=== PATIENT | male | born 1990 | race Caucasian/White ===

== ENCOUNTER 2018-02-27 17:30 | Emergency (ER) | payer MEDICAID, OTHER ==
[~2018-02-27] VITALS: Ht 180.3 cm; Wt 81.8 kg
[~2018-02-27 17:30] MED LIST: LIDO700A32 TOP
[2018-02-27 18:09] LABS: BASOPHILS % (AUTO) 0 % (0-1); EOSINOPHILS # (AUTO) 0.2 X10'3 (0-0.9); HEMATOCRIT 50.7 % (42.0-52.0); LYMPHOCYTES # (AUTO) 0.3 X10'3 (1.1-4.8); MEAN CORPUSCULAR HEMOGLOBIN 30.5 PG (27.0-31.0); MEAN CORPUSCULAR HGB CONC 33.5 % (33.0-36.5); MEAN CORPUSCULAR VOLUME 90.9 FL (78-98); MEAN PLATELET VOLUME 8.1 FL (7.4-10.4); MONOCYTES # (AUTO) 0.3 X10'3 (0-0.9); MONOCYTES % (AUTO) 1.7 % (2-12); NEUTROPHILS # (AUTO) 14.4 X10'3 (1.8-7.7); NEUTROPHILS % (AUTO) 95.3 % (42-75); PLATELET COUNT 313 X10'3 (140-440); RED BLOOD COUNT 5.58 X10'6 (4.70-6.10); RED CELL DISTRIBUTION WIDTH 13.7 % (11.5-14.5); WHITE BLOOD COUNT 15.1 X10'3 (4.5-11.0)
[2018-02-27 18:19] LABS: ALANINE AMINOTRANSFERASE 22 U/L (12-78); ALBUMIN 4.3 G/DL (3.4-5.0); ALBUMIN/GLOBULIN RATIO 1.2 (1.1-1.5); ALKALINE PHOSPHATASE 61 IU/L (46-116); ANION GAP 10 (8-16); ASPARTATE AMINO TRANSFERASE 11 U/L (10-37); BILIRUBIN,TOTAL 0.6 MG/DL (0.1-1.0); BLOOD UREA NITROGEN 19 MG/DL (7-18); BUN/CREATININE RATIO 17.9 (5.4-32.0); CALCIUM 8.8 MG/DL (8.5-10.1); CHLORIDE 102 MMOL/L (99-107); CREATININE 1.06 MG/DL (0.60-1.10); GLUCOSE 101 MG/DL (70-104); LIPASE 90 U/L (73-393); POTASSIUM 4.3 MMOL/L (3.5-5.1); SODIUM 140 MMOL/L (135-145); TOTAL CARBON DIOXIDE 28.2 MMOL/L (24-32); TOTAL PROTEIN 7.8 G/DL (6.4-8.2); eGFR 83 ML/MIN
[2018-02-27 18:28] LABS: PROTHROMBIN TIME 10.3 SECONDS (9.0-12.0)
[2018-02-27 18:55] LABS: TOTAL CELLS COUNTED 100
[2018-02-27] MEDS ORDERED: normal saline 1000ML IV soln IVB ONE (18:55)
[2018-02-27] MEDS ORDERED: ondansetron/PF 4mg/2ml inj IV ONE (18:55)
[2018-02-27 18:56] LABS: PLATELET ESTIMATE NORMAL
[2018-02-27 18:57] LABS: TOXIC VACUOLATION 1+
[2018-02-27] MEDS ORDERED: ONDA8TAB6 PO (18:58)
[2018-02-27 20:25] VITALS: BP 128/64
== END 2018-02-27 20:26 | disposition home or self-care (01) ==
LOC: ER 17:30
DX: R11.2 Nausea with vomiting, unspecified (principal); R19.7 Diarrhea, unspecified; R10.10 Upper abdominal pain, unspecified; R10.84 Generalized abdominal pain; R10.31 Right lower quadrant pain; F17.200 Nicotine dependence, unspecified, uncomplicated; Z88.0 Allergy status to penicillin; Z88.2 Allergy status to sulfonamides; Z88.4 Allergy status to anesthetic agent; Z90.89 Acquired absence of other organs; Z60.2 Problems related to living alone
CPT/HCPCS: 36415; 80053; 83690; 85025; 85610; 96361; 96374; 99283; J2405; J7030

== ENCOUNTER 2018-03-17 11:09 | Emergency (ER) | payer MEDICAID ==
[~2018-03-17] VITALS: Ht 180.3 cm; Wt 81.8 kg
[~2018-03-17 11:09] MED LIST changes: +ONDA8TAB6 PO
[2018-03-17 11:12] VITALS: BP 123/65
[2018-03-17] MEDS ORDERED: HYDR-3686 PO (15:05)
== END 2018-03-17 13:03 | disposition left against medical advice (07) ==
LOC: ER 11:09
DX: R21 Rash and other nonspecific skin eruption (principal); Z53.21 Procedure and treatment not carried out due to patient leaving prior to being seen by health care provider

== ENCOUNTER 2018-03-17 13:35 | Emergency (ER) | payer MEDICAID ==
[~2018-03-17] VITALS: Ht 180.3 cm; Wt 81.8 kg
[2018-03-17 14:17] VITALS: BP 136/77
[2018-03-17] MEDS ORDERED: HYDR-3686 PO (15:05)
== END 2018-03-17 15:20 | disposition home or self-care (01) ==
LOC: ER 13:35
DX: L27.1 Localized skin eruption due to drugs and medicaments taken internally (principal); T37.0X5A Adverse effect of sulfonamides, initial encounter; S00.521A Blister (nonthermal) of lip, initial encounter; L02.811 Cutaneous abscess of head [any part, except face]; L98.8 Other specified disorders of the skin and subcutaneous tissue; Z88.0 Allergy status to penicillin; Z88.2 Allergy status to sulfonamides; Z79.899 Other long term (current) drug therapy; Z90.89 Acquired absence of other organs; X58.XXXA Exposure to other specified factors, initial encounter; Y93.89 Activity, other specified; Y92.89 Other specified places as the place of occurrence of the external cause; Y99.8 Other external cause status
CPT/HCPCS: 10060; 99284

== ENCOUNTER 2018-03-18 10:11 | Emergency (ER) | payer MEDICAID ==
[~2018-03-18] VITALS: Ht 180.3 cm; Wt 79.3 kg
[~2018-03-18 10:11] MED LIST changes: +HYDR-3686 PO
[2018-03-18 10:34] VITALS: BP 133/92
== END 2018-03-18 12:19 | disposition home or self-care (01) ==
LOC: ER 10:11
DX: L27.1 Localized skin eruption due to drugs and medicaments taken internally (principal); T37.0X5D Adverse effect of sulfonamides, subsequent encounter; Z88.0 Allergy status to penicillin; Z88.2 Allergy status to sulfonamides; Z90.89 Acquired absence of other organs; Z79.899 Other long term (current) drug therapy; Z60.2 Problems related to living alone; X58.XXXD Exposure to other specified factors, subsequent encounter
CPT/HCPCS: 99281

== ENCOUNTER 2022-09-09 07:58 | Emergency (ER) | payer MEDICAID ==
[~2022-09-09] VITALS: Ht 180.3 cm; Wt 86.4 kg
[~2022-09-09 07:58] MED LIST changes: -HYDR-3686 PO
[2022-09-09 08:57] LABS: BASOPHILS % (AUTO) 0.3 % (0-1); EOSINOPHILS # (AUTO) 0.3 X10'3 (0-0.9); EOSINOPHILS % (AUTO) 3.3 % (0-6); HEMATOCRIT 42.8 % (42.0-52.0); HEMOGLOBIN 14.5 g/dl (14.0-17.9); LYMPHOCYTES # (AUTO) 1.5 X10'3 (1.1-4.8); LYMPHOCYTES % (AUTO) 15.1 % (21-51); MEAN CORPUSCULAR HEMOGLOBIN 30.4 PG (27.0-31.0); MEAN CORPUSCULAR HGB CONC 33.8 g/dL (33.0-36.5); MEAN CORPUSCULAR VOLUME 89.9 FL (78-98); MEAN PLATELET VOLUME 7.3 FL (7.4-10.4); MONOCYTES # (AUTO) 0.8 X10'3 (0-0.9); MONOCYTES % (AUTO) 8.1 % (2-12); NEUTROPHILS # (AUTO) 7.2 X10'3 (1.8-7.7); NEUTROPHILS % (AUTO) 73.2 % (42-75); PLATELET COUNT 268 X10'3 (140-440); RED BLOOD COUNT 4.76 X10'6 (4.70-6.10); RED CELL DISTRIBUTION WIDTH 13.7 % (11.5-14.5); WHITE BLOOD COUNT 9.8 X10'3 (4.5-11.0)
[2022-09-09 09:13] LABS: ALANINE AMINOTRANSFERASE 23 U/L (12-78); ALBUMIN 3.6 G/DL (3.4-5.0); ALKALINE PHOSPHATASE 78 IU/L (46-116); ANION GAP 7 (8-16); ASPARTATE AMINO TRANSFERASE 11 U/L (10-37); BILIRUBIN,TOTAL 0.2 MG/DL (0.1-1.0); BLOOD UREA NITROGEN 26 MG/DL (7-18); BUN/CREATININE RATIO 26.3 (10.0-20.0); CALCIUM 8.7 MG/DL (8.5-10.1); CHLORIDE 103 MMOL/L (99-107); CREATININE 0.99 MG/DL (0.60-1.10); GLUCOSE 121 MG/DL (70-104); SODIUM 139 MMOL/L (135-145); TOTAL CARBON DIOXIDE 29.4 MMOL/L (24-32); TOTAL PROTEIN 7.2 G/DL (6.4-8.2); eGFR 87 ML/MIN
[2022-09-09 09:17] LABS: POTASSIUM 3.5 MMOL/L (3.5-5.1)
[2022-09-09 09:20] VITALS: BP 141/83
[2022-09-09] MEDS ORDERED: DOXY100C43 PO (10:12)
== END 2022-09-09 10:23 | disposition home or self-care (01) ==
LOC: ER 07:59
DX: L03.113 Cellulitis of right upper limb (principal); Z72.89 Other problems related to lifestyle; Z60.2 Problems related to living alone; Z90.89 Acquired absence of other organs; Z88.0 Allergy status to penicillin; Z88.2 Allergy status to sulfonamides; Z79.899 Other long term (current) drug therapy
CPT/HCPCS: 36415; 80053; 84145; 85025; 99283

== ENCOUNTER 2022-10-28 10:46 | Emergency (ER) | payer MEDICAID ==
[~2022-10-28] VITALS: Ht 180.3 cm; Wt 73.2 kg
[2022-10-28 10:48] VITALS: BP 151/90; PULSE 80; RESP 18; TEMP 98.5; O2SAT 94
[2022-10-28] MEDS ORDERED: CEPH-585 PO (11:17)
[2022-10-28] MEDS ORDERED: bacitracin 15gm ointment TP ONE (11:20)
== END 2022-10-28 11:29 | disposition home or self-care (01) ==
LOC: ER 10:46
DX: T23.101D Burn of first degree of right hand, unspecified site, subsequent encounter (principal); Z88.0 Allergy status to penicillin; Z88.2 Allergy status to sulfonamides; Z79.899 Other long term (current) drug therapy; X58.XXXD Exposure to other specified factors, subsequent encounter
CPT/HCPCS: 11760; 16000; 99283; A6449

== ENCOUNTER 2023-09-12 17:21 | Outpatient (CLI) | payer MEDICAID ==
[~2023-09-12 17:21] MED LIST changes: +CEPH-585 PO
== END 2023-09-12 23:59 | disposition home or self-care (01) ==
LOC: RAD 17:21
PROVIDERS: ATTEND Neurological Surgery
DX: S22.008A Other fracture of unspecified thoracic vertebra, initial encounter for closed fracture (principal); S23.3XXA Sprain of ligaments of thoracic spine, initial encounter; X58.XXXA Exposure to other specified factors, initial encounter; Y93.89 Activity, other specified; Y92.89 Other specified places as the place of occurrence of the external cause; Y99.8 Other external cause status
CPT/HCPCS: 72070

== ENCOUNTER → 2023-10-21 | Outpatient (CLI) | payer MEDICAID | END | disposition home or self-care (01) | LOC: RAD 13:47 | PROVIDERS: ATTEND Neurological Surgery | DX: S22.008A Other fracture of unspecified thoracic vertebra, initial encounter for closed fracture (principal); X58.XXXA Exposure to other specified factors, initial encounter; Y93.89 Activity, other specified; Y92.89 Other specified places as the place of occurrence of the external cause; Y99.8 Other external cause status | CPT/HCPCS: 72074 ==